=== PATIENT | female | born 1965 | race Caucasian/White ===

== ENCOUNTER 2018-12-29 19:33 | Emergency (ER) | payer SELFPAY ==
[2018-12-29] MEDS ORDERED: NORMAL SALINE 1000 ML 1,000 ML IV ONE (20:30)
--- NOTE | 2018-12-29 20:34 | ER Document Report ---
ED General - General Chief Complaint: Breathing Difficulty Stated Complaint: DIFFICULTY BREATHING,DIZZINESS Time Seen by Provider: 12/29/18 20:21 Notes: Patient is a 53-year-old female that comes to the emergency department for chief complaint of confusion and weakness along with vomiting for the past 2 to 3 days. Povohn-ox-uye is with her, states that she has been confused about what week it is and what is going on, he also states she is able to ambulate but she is intermittently very weak. She has not vomited today. She denies headache but states she aches all over. She denies fever/chills. She denies head injury. Past medical history of depression on fluoxetine and vertigo on meclizine. She denies smoking, alcohol, recreational drugs. Only reports lumbar fusion as surgery, denies medical history otherwise. TRAVEL OUTSIDE OF THE [place] IN LAST 30 DAYS: No - Related Data Allergies/Adverse Reactions: No Known Allergies Allergy (Unverified 12/29/18 23:41) Past Medical History - General Information source: Patient - Social History Smoking Status: Never Smoker Frequency of alcohol use: None Drug Abuse: None Lives with: Family Family History: Reviewed & Not Pertinent EENT Medical History: Reports: Other - Vertigo Psychiatric Medical History: Reports: Hx Depression - Immunizations Immunizations up to date: Yes Hx Diphtheria, Pertussis, Tetanus Vaccination: Yes Review of Systems - Review of Systems Constitutional: See HPI EENT: No symptoms reported Cardiovascular: No symptoms reported Respiratory: No symptoms reported Gastrointestinal: See HPI Genitourinary: No symptoms reported Female Genitourinary: No symptoms reported Musculoskeletal: No symptoms reported Skin: No symptoms reported Hematologic/Lymphatic: No symptoms reported Neurological/Psychological: See HPI Physical Exam - Vital signs Vitals: Temp Pulse Resp BP Pulse Ox 97.9 F 103 H 18 141/89 H 97 12/29/18 20:00 12/29/18 20:00 12/29/18 20:00 12/29/18 20:00 12/29/18 20:00 - Notes Notes: GENERAL: Awake and responsive but sluggish. Does not appear to be in distress. Obese. Smells of urine. HEAD: Normocephalic, atraumatic. EYES: Pupils equal, round, and reactive to light. Extraocular movements intact. ENT: Oral mucosa very dry, tongue midline. Oropharynx unremarkable. Airway patent. Nares patent. NECK: Full range of motion. Supple. Trachea midline. LUNGS: Clear to auscultation bilaterally, no wheezes, rales, or rhonchi. No respiratory distress. HEART: Borderline tachycardia, normal rhythm. No murmur ABDOMEN: Soft, non-tender. Non-distended. Bowel sounds present in all 4 quadrants. GENITOURINARY: Deferred EXTREMITIES: Moves all 4 extremities spontaneously. No edema, normal radial and dorsalis pedis pulses bilaterally. No cyanosis. BACK: no cervical, thoracic, lumbar midline tenderness. No saddle anesthesia, normal distal neurovascular exam. Moves all extremities in full range of motion. NEUROLOGICAL: Patient is alert, oriented to person and family but not to events. Speaks in a sluggish manner. No overt slurring of words. Answers some orientation questions wrong as well as her current city. Cranial nerves II through XII grossly intact. SKIN: Warm, dry, normal turgor. No rashes or lesions noted. Course - Re-evaluation Re-evalutation: Patient is acting very strangely. She does not have nystagmus but she is constantly glancing around. She does not complain of symptoms suggesting vertigo and does not seem to be having acute vertigo symptoms either. She also seems dazed. She states she thinks she is in [facility], she is able to tell me the year, she is able to tell me who is with her. She struggles to give me details of the past 2 to 3 days. Her neurological exam is unremarkable otherwise. Her mucous membranes are extremely dry. Ordering workup, CT of the head, IV fluids. Radiologist called, patient has intracranial hemorrhage with bleeding into the ventricles and mild to moderate shift. Creatinine is 1.5, BUN is elevated, leukocytosis noted, patient is Jack been started on IV fluids. Giving 1000 mg of Keppra, will call for transfer for ICU with neurosurgery coverage. GCS is 14. Discussed with Dr. Buckley. I did discuss with patient and family member at bedside. Patient has not had an y change from prior, her blood pressures are averaging 140 systolic. Seizure precautions placed. They state agreement was transferred. 12/29/18 21:40 Discussed with Rose MAXWELL, she excepts, states that the accepting physician will be Dr. Tim. She recommends that in addition to the Keppra and IV fluids she be given 1 g of TXA and 1 g/kg of mannitol. These were both initiated. 12/29/18 23:15 There have been 2 delays in helicopter transport because of weather not permitting it, however an ambulance has been dispatched and is supposed to be arriving soon. 12/29/18 23:23 Patient has been reevaluated again at bedside. She has no focal deficits but she still has sluggish responses and has confusion with several questions. GCS of still 14. No significant change from prior. Blood pressure 140/87. Stable for transport. - Vital Signs Vital signs: Temp Pulse Resp BP Pulse Ox 99.8 F 74 24 H 139/90 H 96 12/29/18 23:34 12/29/18 21:06 12/29/18 23:34 12/29/18 23:34 12/29/18 23:34 - Laboratory Result Diagrams: 12/29/18 20:20 12/29/18 20:20 Laboratory results interpreted by me: 12/29/18 12/29/18 12/29/18 20:20 20:20 21:24 WBC 19.3 H Plt Count 593 H Absolute Neutrophils 15.0 H Absolute Monocytes 1.5 H Chloride 109 H BUN 35 H Creatinine 1.51 H Est GFR ( Amer) 44 L Est GFR (Non-Af Amer) 36 L Glucose 150 H POC Glucose 123 H Direct Bilirubin 0.5 H AST 65 H ALT 64 H Total Protein 8.7 H Urine Protein Urine Blood 12/29/18 23:17 WBC Plt Count Absolute Neutrophils Absolute Monocytes Chloride BUN Creatinine Est GFR ( Amer) Est GFR (Non-Af Amer) Glucose POC Glucose Direct Bilirubin AST ALT Total Protein Urine Protein 30 H Urine Blood LARGE H Critical Care Note - Critical Care Note Total time excluding time spent on procedures (mins): 45 - Intracranial hemorrhage Comments: Please allow 45 minutes of critical care time for evaluation and management with acute intracranial bleed. Interventions including Keppra, mannitol, TXA, IV fluids. Time spent performing multiple re-evaluations. Time spent discussing with patient, family, and in transferring to tertiary care. Discharge - Discharge Clinical Impression: Intracranial hemorrhage, Dizziness, Confusion, Acute renal insufficiency Condition: Serious Disposition: [facility]
[2018-12-29 20:41] LABS: ABSOLUTE BASOPHILS # (AUTO) 0.1 10^3/uL (0.0-0.2); ABSOLUTE LYMPHOCYTES (AUTO) 2.7 10^3/uL (0.5-4.7); ABSOLUTE MONOCYTES (AUTO) 1.5 10^3/uL (0.1-1.4); BASOPHILS % (AUTO) 0.5 % (0-2); HEMATOCRIT 44.3 % (36.0-47.0); HEMOGLOBIN 14.7 g/dL (12.0-15.5); LYMPHOCYTES % (AUTO) 13.7 % (13-45); MEAN CORPUSCULAR HEMOGLOBIN 29.4 pg (27.0-33.4); MEAN CORPUSCULAR HGB CONC 33.1 g/dL (32.0-36.0); MEAN CORPUSCULAR VOLUME 89 fl (80-97); MONOCYTES % (AUTO) 7.9 % (3-13); PLATELET COUNT 593 10^3/uL (150-450); RED BLOOD COUNT 4.98 10^6/uL (3.72-5.28); RED CELL DISTRIBUTION WIDTH 13.3 % (11.5-14.0); SEGMENTED NEUTROPHILS % (AUTO) 77.9 % (42-78); TOTAL CELLS COUNTED % (AUTO) 100 %; WHITE BLOOD COUNT 19.3 10^3/uL (4.0-10.5)
[2018-12-29 20:59] LABS: ALANINE AMINOTRANSFERASE 64 U/L (9-52); ALBUMIN 4.5 g/dL (3.5-5.0); ALKALINE PHOSPHATASE 108 U/L (38-126); ANION GAP 13 (5-19); ASPARTATE AMINO TRANSFERASE 65 U/L (14-36); BILIRUBIN,DIRECT 0.5 mg/dL (0.0-0.4); BLOOD UREA NITROGEN 35 mg/dL (7-20); CALCIUM 10.2 mg/dL (8.4-10.2); CARBON DIOXIDE 23 mmol/L (22-30); CHLORIDE 109 mmol/L (98-107); CREATINE KINASE 90 U/L (30-135); GLUCOSE 150 mg/dL (75-110); POTASSIUM 3.9 mmol/L (3.6-5.0); SODIUM 144.8 mmol/L (137-145); TOTAL PROTEIN 8.7 g/dL (6.3-8.2)
[2018-12-29 21:11] LABS: CREATINE KINASE MB 0.23 ng/mL (<4.55)
--- NOTE | 2018-12-29 21:18 | RADIOLOGY REPORT (SQ) ---
EXAM DESCRIPTION: XR CHEST 1 VIEW COMPLETED DATE/TME: 12/29/2018 00:00 CLINICAL HISTORY: syncope COMPARISON: None FINDINGS: Cardiac silhouette is within normal limits. EKG leads project over the chest. There is no focal parenchymal or pleural disease. There is no acute osseous process visualized. IMPRESSION: No evidence of acute cardiopulmonary disease.
[2018-12-29 21:19] LABS: TROPONIN I < 0.012 ng/mL
--- NOTE | 2018-12-29 21:19 | RADIOLOGY REPORT (SQ) ---
EXAM DESCRIPTION: CT HEAD WITHOUT INTRAVENOUS CONTRAST CLINICAL HISTORY: Altered mental status. Vomiting. COMPARISON: None TECHNIQUE: CT of the head was performed without intravenous contrast .This exam was performed according to our departmental dose-optimization program, which includes automated exposure control, adjustment of the mA and/or KV according to the patient's size and/or use of iterative reconstruction technique. FINDINGS: There is a mild to moderate size left basal ganglia hemorrhage involves portions of the head and body of the caudate nucleus. There is a moderate to prominent edema left lateral to the basal ganglia hemorrhage. There is a large left lateral intraventricular hemorrhage. Minimal blood in the dependent portion of the right lateral ventricle. Blood inside the third and fourth ventricles. There is mass effect with mild midline shift from left to right of approximately 8 mm. There is compression of the anterior horn of the left lateral ventricle. There are trapped bilateral temporal horns. There is generalized effacement of the cortical sulci bilaterally. No suspicious focal extra-axial processes. Mastoid air cells, paranasal sinuses and bony calvarium are unremarkable. IMPRESSION: 1. There is a left medial basal ganglia acute hemorrhage. The size of the hyperdensity acute hemorrhagic process is not very large but there is surrounding moderate edema which could also represent additional bleed that is not dense. 2. Significant intraventricular bleed left lateral ventricle more than the right and also blood in the third and fourth ventricles. 3. Mild to moderate mass effect with midline shift. 4. Suspected early hydrocephalus. 5. Clinical findings discussed by myself with Dr. Drew at 6:12 PM PST
[2018-12-29 21:23] LABS: VENOUS BLOOD BASE EXCESS 0.6 mmol/L; VENOUS BLOOD HCO3 25.1 mmol/L (20-32); VENOUS BLOOD PCO2 40.3 mmHg (35-63); VENOUS BLOOD PH 7.41 (7.30-7.42)
[2018-12-29] MEDS ORDERED: LEVETIRACETAM 1000 MG/NACL-ISO 1,000 MG/100 ML RTUPB IV ONE (21:35)
[2018-12-29 21:36] LABS: INTERNATIONAL RATION (INR) 1.09; PROTHROMBIN TIME 14.2 SEC (11.4-15.4)
[2018-12-29] MEDS ORDERED: TRANEXAMIC ACID INJ/PF 1,000 MG/10 ML SDV IV ONE ×2 (21:36→21:40)
[2018-12-29 21:37] LABS: PARTIAL THROMBOPLASTIN TIME 29.6 SEC (23.5-35.8)
[2018-12-29] MEDS ORDERED: MANNITOL 500 ML IV ONE (21:37)
[2018-12-29] MEDS ORDERED: MANNITOL 0 ML IV ONE (22:06)
[2018-12-29 23:49] VITALS: BP 139/90
[2018-12-29 23:52] LABS: APPEARANCE,URINE SLIGHTLY-CLOUDY; BILIRUBIN,URINE NEGATIVE (NEGATIVE); COLOR,URINE YELLOW; GLUCOSE, URINE NEGATIVE (NEGATIVE); KETONES,URINE NEGATIVE (NEGATIVE); LEUKOCYTE ESTERASE,URINE NEGATIVE (NEGATIVE); NITRITE,URINE NEGATIVE (NEGATIVE); PROTEIN,URINE 30 mg/dL (NEGATIVE); URINE SPECIFIC GRAVITY 1.031; UROBILINOGEN,URINE NEGATIVE mg/dL (<2.0)
--- NOTE | 2018-12-30 22:40 | EKG REPORT ---
SEVERITY:- ABNORMAL ECG - SINUS RHYTHM PROBABLE LVH WITH SECONDARY REPOL ABNRM : Confirmed by: Susie Ho MD 30-Dec-2018 22:39:57
== END 2018-12-29 23:45 | disposition short-term general hospital (02) ==
LOC: ER 19:33
DX: I62.9 Nontraumatic intracranial hemorrhage, unspecified (principal); R41.0 Disorientation, unspecified; R53.1 Weakness; N28.9 Disorder of kidney and ureter, unspecified; R52 Pain, unspecified; R42 Dizziness and giddiness; Z79.899 Other long term (current) drug therapy; F32.9 Major depressive disorder, single episode, unspecified; E66.9 Obesity, unspecified; D72.829 Elevated white blood cell count, unspecified
CPT/HCPCS: 93005; 99291; 96361; 96375; 96365; 96367; 36415; 82553; 82962; 82550; 85025; 85610; 85730; 80053; 81001; 84484; 82803; 71045; 70450; 93010; J2150; J7030; J1953; J3490